=== PATIENT | male | born 1965 | race Native Hawaiian/Other Pacific Islander ===

== ENCOUNTER 2018-10-06 17:34 | Emergency (ER) | payer OTHER ==
[~2018-10-06] VITALS: Ht 170.2 cm; Wt 72.6 kg
[2018-10-06 17:34] VITALS: BP 125/87; TEMP 97.9
[2018-10-06 18:21] LABS: PLATELET COUNT 156 K/uL (142-355)
[2018-10-07] MEDS ORDERED: SENEXON8.6 MG PO (00:11)
[2018-10-07] MEDS ORDERED: BENZTROPINE2 MG PO (00:13)
[2018-10-07] MEDS ORDERED: BUSPIRONE10 MG PO (00:14)
[2018-10-07] MEDS ORDERED: ROWEEPRA750 MG PO (00:15)
[2018-10-07] MEDS ORDERED: PHENYTOIN EX100 MG PO (00:16)
[2018-10-07] MEDS ORDERED: POT CHLORIDE10 ME1 PO (00:18)
[2018-10-07] MEDS ORDERED: VALPROIC A250 MG/5 M PO (00:20)
[2018-10-07] MEDS ORDERED: QUETIAPINE50 MG PO (00:20)
[2018-10-07] MEDS ORDERED: MAGNESIUM OXID400 M1 PO (00:22)
[2018-10-07] MEDS ORDERED: BUSPIRONE5 MG PO (00:23)
== END 2018-10-06 20:06 | disposition other institution (70) ==
LOC: ED 17:34
PROVIDERS: Family Medicine
DX: R46.89 Other symptoms and signs involving appearance and behavior (principal); Z04.6 Encounter for general psychiatric examination, requested by authority
CPT/HCPCS: 36415; 80053; 81000; 85027; 93005; 99285

== ENCOUNTER 2020-06-23 22:56 | Emergency (ER) | payer OTHER ==
[~2020-06-23] VITALS: Ht 162.6 cm; Wt 83.5 kg
[2020-06-23 22:56] VITALS: BP 154/96; TEMP 98.3
[~2020-06-23 22:56] MED LIST: BENZTROPINE2 MG PO; BUSPIRONE10 MG PO; BUSPIRONE5 MG PO; ESCI10TA PO; MAGNESIUM OXID400 M1 PO; PHENYTOIN EX100 MG PO; POT CHLORIDE10 ME1 PO; QUETIAPINE50 MG PO; ROWEEPRA750 MG PO; SENEXON8.6 MG PO; SIMV20TA2 PO; VALPROIC A250 MG/5 M PO; VITAMIN D50000 UNIT PO; ZIPR20CA PO
[2020-06-24 00:03] LABS: PLATELET COUNT 150 K/uL (142-355)
[2020-06-24] MEDS ORDERED: SERT50TA PO (10:23)
[2020-06-24] MEDS ORDERED: ZYPREXA ZYDI10 MG PO (10:23)
[2020-06-24] MEDS ORDERED: TRAZ50TA36 PO ×2 (10:24)
[2020-06-24] MEDS ORDERED: BENZ1TAB43 PO (10:25)
[2020-06-24] MEDS ORDERED: MGO PO (10:26)
[2020-06-24] MEDS ORDERED: PHEN50CH2 PO (10:26)
[2020-06-24] MEDS ORDERED: TRILEPTAL150 MG PO (10:27)
[2020-07-04] MEDS ORDERED: ACET-206 PO (09:11)
[2020-07-04] MEDS ORDERED: ESCI10TA PO (09:54)
[2020-07-04] MEDS ORDERED: OLANZAPINE10 MG PO ×2 (09:56→09:57)
[2020-07-04] MEDS ORDERED: OXCARBAZEPIN300 MG PO (09:56)
[2020-07-04] MEDS ORDERED: PHENYTOIN EX100 MG PO (09:57)
[2020-07-04] MEDS ORDERED: MAGNSUS68 PO (09:58)
[2020-07-04] MEDS ORDERED: BUSP5TAB2 PO (09:58)
[2020-07-04] MEDS ORDERED: CHOL100034 PO (09:58)
== END 2020-06-24 00:54 | disposition other institution (70) ==
LOC: ED 23:00
PROVIDERS: Family Medicine
DX: R46.89 Other symptoms and signs involving appearance and behavior (principal); Z11.59 Encounter for screening for other viral diseases; Z04.6 Encounter for general psychiatric examination, requested by authority
CPT/HCPCS: 36415; 80053; 81000; 85027; 87635; 93005; 99283; 99285; U0003

== ENCOUNTER 2020-10-03 17:42 | Emergency (ER) | payer OTHER ==
[~2020-10-03] VITALS: Ht 162.6 cm; Wt 82.6 kg
[~2020-10-03 17:42] MED LIST changes: +ACET-206 PO; +BENZ1TAB43 PO; +BUSP5TAB2 PO; +CHOL100034 PO; +MAGNSUS68 PO; +MGO PO; +OLANZAPINE10 MG PO; +OXCARBAZEPIN300 MG PO; +PHEN50CH2 PO; +SERT50TA PO; +TRAZ50TA36 PO; +TRILEPTAL150 MG PO; +ZYPREXA ZYDI10 MG PO
[2020-10-03 17:44] VITALS: BP 150/87; TEMP 98
[2020-10-03 18:32] LABS: PLATELET COUNT 192 K/uL (142-355)
[2020-10-03 18:49] LABS: POTASSIUM 3.9 mmol/L (3.6-5.2)
[2020-10-03] MEDS ORDERED: MAG OXIDE400 MG PO (22:41)
[2020-10-03] MEDS ORDERED: BUSPIRONE10 MG PO (22:45)
[2020-10-03] MEDS ORDERED: PHENYTOIN EX100 MG PO (22:45)
[2020-10-03] MEDS ORDERED: HALO5INJ3 IM ×2 (22:47→22:49)
== END 2020-10-03 19:21 | disposition other institution (70) ==
LOC: ED 17:42
PROVIDERS: Family Medicine
DX: F03.91 Unspecified dementia, unspecified severity, with behavioral disturbance (principal); Z11.52 Encounter for screening for COVID-19; Z04.6 Encounter for general psychiatric examination, requested by authority
CPT/HCPCS: 80053; 85027; 87635; 93005; 99283; U0003

== ENCOUNTER 2022-03-06 16:56 | Emergency (ER) | payer OTHER ==
[~2022-03-06] VITALS: Ht 160 cm; Wt 72.6 kg
[~2022-03-06 16:56] MED LIST changes: +BUSP15TAB2 PO; +CITA20TA2 PO; +HALO5INJ3 IM; +MAG OXIDE400 MG PO; +MAGN400T4 PO; +MEDR2.5T19 PO
[2022-03-06 18:13] LABS: PLATELET COUNT 137 K/uL (142-355)
[2022-03-06 18:35] LABS: POTASSIUM 3.7 mmol/L (3.6-5.2)
[2022-03-06] MEDS ORDERED: DIVA500T2 PO (21:01)
[2022-03-06] MEDS ORDERED: CELEXA10 MG PO (21:01)
[2022-03-06] MEDS ORDERED: DIVALPROEX250 M1 PO (21:04)
[2022-03-06] MEDS ORDERED: PHENYTOIN EX100 MG PO (21:06)
[2022-03-06] MEDS ORDERED: PHENYTOIN EX300 MG PO (21:06)
[2022-03-06] MEDS ORDERED: TRAZODONE HYDRO50 MG PO (21:07)
[2022-03-06] MEDS ORDERED: BENZ1TAB43 PO (21:10)
[2022-03-06] MEDS ORDERED: BUSP15TAB2 PO (21:11)
[2022-03-06] MEDS ORDERED: KEPPRA750 MG PO (21:12)
[2022-03-06] MEDS ORDERED: MAGNESIUM OXID400 M1 PO (21:13)
[2022-03-06] MEDS ORDERED: OLANZAPINE10 MG PO (21:14)
[2022-03-06] MEDS ORDERED: [UNRECOGNIZED DRUG - OTHER] PO (21:16)
[2022-03-06] MEDS ORDERED: PROVERA10 MG PO (21:18)
== END 2022-03-06 19:07 | disposition still patient (30) ==
LOC: ED 16:56
PROVIDERS: Emergency Medicine Emergency Medical Services
DX: F03.91 Unspecified dementia, unspecified severity, with behavioral disturbance (principal); Z11.52 Encounter for screening for COVID-19; Z04.6 Encounter for general psychiatric examination, requested by authority
CPT/HCPCS: 80053; 81002; 85027; 87635; 93005; 99284; U0003